=== PATIENT | female | born 1940 | race Caucasian/White ===

== ENCOUNTER 2017-06-17 06:09 | Emergency (ER) | payer OTHER ==
[~2017-06-17] VITALS: Ht 154.9 cm; Wt 79.4 kg
[~2017-06-17 06:09] MED LIST: ALFALFA650 MG PO; ANASPAZ0.125 MG; APPLE CIDER VI300 MG PO; ASPIRIN325 PO; BREWER S YEAST PO; BYSTOLIC 5 MG5 MG PO; CARDIZEM CD120 MG PO; CELEBREX50 MG PO; CLONAZEPAM 0.50.5 M1 PO; CLONIDINE0.1 PO; CLORPRES 0.1-11 EACH PO; COMPLEX; CRANBERRY400 MG PO; CRESTOR10 MG PO; FISHOIL PO; FLAXSEED OIL1000 M2 PO; FLAXSEED OIL1000 MG PO; FLEXERIL PO; HYDROCODON-ACE1 EAC5 PO; HYDROCODON-ACE1 EAC7 PO; HYDROCODON-ACE1 EACH PO; IBUPROFEN 200200 M1 PO; KAPVAY0.1 MG; LECITHIN1200 M1 PO; LEVOTHYROXINE PO; LISINOPRIL10 MG; LISINOPRIL10 MG PO; LISINOPRIL20 MG PO; MAGOX 400400 MG PO; METAXALL800 MG PO; MILK THISTLE500 MG PO; MOBIC7.5 M1 PO; MULTIVITAMINS PO; NEURONTIN 300300 M1 PO; NIACIN 500 MG500 M1 PO; OMEPRAZOLE40 MG PO; PREMARIN0.625 MG PO; PRILOSEC40 MG PO; PRINIVIL5 MG; PROBIOTIC1 EAC1 PO; SENNA; STOOL SOFTENER50 MG PO; TIZANIDINE HCL4 M1 PO; TOPICAL CREAM; TRAZODONE HCL100 MG PO; TUMS PO; UNICOMPLEX M TA1 TA1 PO; VITAMIN B-625 MG PO; VITAMIN D31000 UNI2 PO; VOLTAREN50 MG; [UNRECOGNIZED DRUG - OTHER]; [UNRECOGNIZED DRUG - OTHER]; [UNRECOGNIZED DRUG - OTHER] MC; vitamin b12 PO
[2017-06-17 06:57] LABS: ABSOLUTE EOSINOPHILS 0.2 thou/uL (0.0-0.7); ABSOLUTE LYMPHOCYTES 2.5 thou/uL (0.8-5.3); ABSOLUTE MONOCYTES 0.6 thou/uL (0.0-1.2); ABSOLUTE NEUTROPHILS 2.6 thou/uL (1.6-8.1); BASOPHILS 0.6 %; EOSINOPHILS 3.6 %; HEMATOCRIT 31.9 % (37.0-47.0); HEMOGLOBIN 11.2 gm/dL (12.0-15.0); LYMPHOCYTES 42.6 %; MCH 32.4 pg (26.0-34.0); MCHC 35.2 g/dL (28.0-37.0); MONOCYTES 9.8 %; MPV 6.7 fl. (7.2-11.1); NUCLEATED RBCS 0 /100WBC; PLATELET COUNT* 193 thou/uL (150-400); POLYS 43.4 %; RBC 3.46 mil/uL (4.20-5.00); WBC 5.9 thou/uL (4.0-11.0)
[2017-06-17 07:06] LABS: ANION GAP 3 mmol/L (7-16); BUN 16 mg/dL (7-18); CALCIUM 8.5 mg/dL (8.5-10.1); CHLORIDE 107 mmol/L (98-107); CO2 31 mmol/L (21-32); CREATININE 1.1 mg/dL (0.6-1.3); GLUCOSE 108 mg/dL (70-99); POTASSIUM 3.7 mmol/L (3.5-5.1); SODIUM 141 mmol/L (136-145)
[2017-06-17 07:13] LABS: ALBUMIN 3.2 g/dL (3.4-5.0); ALKALINE PHOSPHATASE 52 U/L (46-116); SGOT 17 U/L (15-37); SGPT 21 U/L (30-65); TOTAL BILIRUBIN 0.3 mg/dL (<0.1-1.0); TROPONIN-I LEVEL <0.06 ng/mL (<0.06)
[2017-06-17 08:00] LABS: URINE BILIRUBIN NEGATIVE (Negative); URINE BLOOD NEGATIVE (Negative); URINE CLARITY CLEAR; URINE COLOR YELLOW; URINE GLUCOSE-RANDOM NEGATIVE (Negative); URINE KETONES NEGATIVE (Negative); URINE LEUKOCYTES-REFLEX NEGATIVE (Negative); URINE NITRITE-REFLEX NEGATIVE (Negative); URINE PROTEIN NEGATIVE (Negative); URINE SPECIFIC GRAVITY <= 1.005 (1.005-1.030); URINE UROBILINOGEN 0.2 E.U./dl (0.2-1.0)
[2017-06-17] MEDS ORDERED: ZOFRAN ODT4 MG PO (10:18)
[2017-06-17] MEDS ORDERED: CARAFATE 1 GM TA1 GM PO (10:18)
[2017-06-17 10:41] VITALS: BP 131/56
--- NOTE | 2017-06-17 16:47 | EKG ---
[place] [address] ELECTROCARDIOGRAM REPORT Name: CAROLEIRASEMA Rosa Maria Room: [facility]#: [id number] Admission: 06/17/17 Attend Phys: Discharge: 06/17/17 Date of : 36 Report #: [id number] THIS REPORT FOR: //name// [facility] ED Test Date: 2017-06-17 Test Time: 06:39:38 Pat Name: IRASEMA LAM Department: Room: Gender: F Brisket Puller: YAKELIN : 1940 Requested By: Sonia Tabor Order Number: [id number] MD: Sampson Dumont Measurements Intervals [place] Rate: 60 P: 54 [place]: 167 QRS: -25 QRSD: 113 T: 55 QT: 515 QTc: 515 Interpretive Statements Sinus rhythm Borderline intraventricular conduction delay Prolonged QT interval nonspecific st changes Compared to ECG 06/17/2016 10:42:12 Prolonged QT interval now present Atrial premature complex(es) no longer present Left ventricular hypertrophy no longer present Electronically Signed On 06-17-2017 16:47:27 SEED BUYER by Sampson Dumont [email or web address] <ELECTRONICALLY SIGNED> By: Sampson Dumont MD, [facility] 06/17/17 1647 0639 0639 Sampson Dumont MD, [facility] /EPI
[2017-08-11] MEDS ORDERED: SYNTHROID50 MCG PO (13:56)
[2017-08-11] MEDS ORDERED: PREMARIN30 GM TOP (13:58)
[2017-08-11] MEDS ORDERED: HYDROCODONE-AP1 EAC6 PO (13:59)
[2017-08-11] MEDS ORDERED: LISINOPRIL10 MG PO (14:00)
[2017-08-11] MEDS ORDERED: ZANAFLEX4 MG PO (14:01)
[2017-08-11] MEDS ORDERED: [UNRECOGNIZED DRUG - OTHER] (14:02)
[2017-08-11] MEDS ORDERED: CHOLESTEROL OFF (14:02)
[2017-08-11] MEDS ORDERED: [UNRECOGNIZED DRUG - OTHER] (14:04)
[2017-09-25] MEDS ORDERED: HYDROCODONE-AP1 EAC6 PO (11:48)
[2017-09-25] MEDS ORDERED: MEDROLDOSEPACK PO (11:48)
== END 2017-06-17 10:44 | disposition home or self-care (01) ==
LOC: M.ERS 06:09
PROVIDERS: Personal Emergency Response Attendant
DX: R11.0 Nausea (principal); I10 Essential (primary) hypertension; Z90.710 Acquired absence of both cervix and uterus; Z90.49 Acquired absence of other specified parts of digestive tract; Z91.041 Radiographic dye allergy status; Z88.8 Allergy status to other drugs, medicaments and biological substances; Z88.0 Allergy status to penicillin

== ENCOUNTER → 2017-08-13 | Outpatient (CLI) | payer OTHER ==
[~2017-08-13] MED LIST changes: +CARAFATE 1 GM TA1 GM PO; +CHOLESTEROL OFF; +HYDROCODONE-AP1 EAC6 PO; +MEDROLDOSEPACK PO; +PREMARIN30 GM TOP; +SYNTHROID50 MCG PO; +ZANAFLEX4 MG PO; +ZOFRAN ODT4 MG PO; +[UNRECOGNIZED DRUG - OTHER]; +[UNRECOGNIZED DRUG - OTHER]
--- NOTE | 2017-08-13 10:03 | EKG ---
[place] [address] ELECTROCARDIOGRAM REPORT Name: IRASEMA LAM Room: [facility]#: [id number] Admission: 08/13/17 Attend Phys: Sampson Virgen MD Discharge: Date of : 38 Report #: [id number] THIS REPORT FOR: //name// [facility] Test Date: 2017-08-13 Test Time: 07:37:08 Pat Name: IRASEMA LAM Department: Room: Gender: F Probe Operator: 14 : 1940 Requested By: Rambo Guy Order Number: [id number] MD: Sampson Dumont Measurements Intervals [place] Rate: 70 P: 50 PA: 162 QRS: -40 QRSD: 110 T: 60 QT: 462 QTc: 499 Interpretive Statements Sinus rhythm Left axis deviation nonspecific st changes Borderline prolonged QT interval Compared to ECG 06/17/2017 06:39:38 no change Electronically Signed On 08-13-2017 10:03:29 CDT by Sampson Dumont [email or web address] <ELECTRONICALLY SIGNED> By: Sampson Dumont MD, [facility] 08/13/17 1003 Sampson Dumont MD, [facility] /EPI
== END ==
LOC: M.MRI 06:58
DX: M51.36 Other intervertebral disc degeneration, lumbar region (principal); M41.86 Other forms of scoliosis, lumbar region; M48.061 Spinal stenosis, lumbar region without neurogenic claudication; Z78.0 Asymptomatic menopausal state

== ENCOUNTER → 2017-08-28 | Outpatient (CLI) | payer OTHER | LOC: M.CT 11:11 | DX: K63.89 Other specified diseases of intestine (principal); M47.896 Other spondylosis, lumbar region; Z78.0 Asymptomatic menopausal state ==

== ENCOUNTER → 2017-09-25 | Outpatient (CLI) | payer OTHER ==
--- NOTE | 2017-10-03 09:09 | PAINCON ---
[address] [address] PAIN MANAGEMENT CONSULTATION Name: IRASEMA LAM Room: [facility].#: [id number] Admission: 09/25/17 Attend Phys: Alin Hill MD Discharge: Date of : 36 Report #: [id number] THIS REPORT FOR: //name// CC: Kary Hill DATE OF SERVICE: 09/25/2017 FOLLOWUP COMPLAINT: Pain is increased again. I am having pain that is radiating down into my calf. I had a long trip back from [place] and was unable to sit up in the car. FOLLOWUP HISTORY: The patient is a 76-year-old female who has been seen in the pain clinic because of lumbar radiculopathy. She has undergone epidural steroid injection in the pain and gleaned benefits greater than 50% from these. She has noted some worsening of her pain in the interim. Rates her pain as 5/10 at this juncture. Notes that she is feeling some weakness in her legs. Notes some decreased strength. She still goes to [employer] to work on at this problem. Notes that ____ can be helpful. She has a topical pain item which she rubs on posterior portion of her legs and finds that this can be somewhat helpful. States that she has seen her orthopaedic surgeon, but no significant pathology is obvious enough to warrant surgery at this juncture. She states that she must sleep in a recliner. She feels that her pain at sometimes rises to the level that she is unable to "think straight." It makes her "crazy." She does use hydrocodone 3 times a day when absolutely necessary. She tries to refrain from using opioid medications. ALLERGIES: IODINE, METALS TAPE, PENICILLIN, ADHESIVES. CURRENT MEDICATIONS: Sandoval 600 mg tablets, aspirin 325 mg 1 tablet, vitamin D3 1000 units, apple cider vinegar 300 mg tablet, clonazepam 0.5 mg, cranberry 400 mg, fish oil 240 mg t.i.d., estrogen 0.625, flaxseed oil 1000 mg, hydrocodone/acetaminophen 10/325 one q.8 hours p.r.n. pain., Lecithin 1200 mg capsule, lisinopril 20 mg b.i.d., magnesium oxide 400 mg at bedtime, milk thistle 500 mg, iron, Unicap, Unicomplex-M tablet 1, vitamin B6, Haq's Yeast 500 mg, and levothyroxine. The patient has stopped taking Prilosec 40 mg tablets, stopped malic acid powder 500 mg. PAIN CLINIC ASSESSMENT: 1. 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 2. Height 5 feet 1 inch, weight 175 pounds, BMI is 33. 3. VITAL SIGNS: Blood pressure 126/70, heart rate 73, respiratory rate 16, room air saturation 96%, temperature 98.1. 4. Pain intensity 5/10. 5. Fall risk. The patient has not fallen in the last 3 months, [place] [address] PAIN MANAGEMENT CONSULTATION Name: IRASEMA LAM Room: [facility]#: [id number] Admission: 09/25/17 Attend Phys: Alin Hill MD Discharge: Date of : 38 Report #: [id number] quite difficult to engage in a long car ride from [place] to [place]. 6. Blood thinner. The patient is not on a blood thinning medication. 7. Hypertension. The patient is being treated for hypertension. 8. Opioid therapy greater than 6 weeks. The patient has used opioid medications for chronic back pain. 9. Risk assessment tool. 10. Functional assessment tool. 11. Recreational drug use. The patient denies use of recreational drug use. 12. Tobacco: The patient denies use of tobacco. 13. Alcoholic beverages. The patient denies routine use of alcoholic beverages. LABORATORY DATA: Myelogram of the cervical spine dated 07/21/2017 indicate there is adequate contrast within the cervical spine for the CT. The contrast column diffused and spilled into the skull. The patient was not oblique to preserve the remaining contrast. There is reversal of the cervical lordosis centered at C5-C6. Ventral epidural defect is noted at C4-C5. Intrathecal instillation of 4 mL Isovue. FINDINGS: 1. At C3-C4, there is endplate spurring with uncinate process spurring. AP diameter is 14 mm. 2. At C4-C5 uncinate process spurring is greater on the left. There is facet hypertrophy with effacement of the ventral CSF column. AP diameter of 14 mm. 3. At C5-C6, there is endplate irregularity and uncinate process spurring are mild. There is effacement of the ventral CSF column. AP diameter 12 mm. 4. At C6-C7, there is disc osteophyte complex and uncinate process spurring. There is narrowing of the inner space. There is mild canal stenosis with midline AP diameter of the thecal sac 9-10 mm. Foraminal narrowing is mild on the right and mild to moderate on the left. 5. At C7-T1, there is facet hypertrophy which is greater on the right. There is mild right foraminal narrowing. MRI of the lumbar spine, mild scoliosis is noted: 1. There is a prominent facet degenerative change at the lower facets at L4-L5 and L5-S1. Mild facet degenerative changes noted throughout the lumbar spine. The conus is normal position. There is endplate marrow enhancement at L1-L2 with milder enhancement of the endplate at L3-L4. There is also some facet synovial enhancement on the right L1-L2. L4-L5 shows spurring and degenerative change. There is lateral recess and mild inferior foraminal encroachment bilaterally. Central canal is maintained. 2. L3-L4 shows no focal disc protrusion. There is mild disc bulging, facet spurring and degenerative changes noted with some ligamentum flavum hypertrophy. Central canal is maintained. 3. L2-L3. No focal disc protrusion. 4. L1-L2, the central canal is slower limits measuring 10 mm, [place] [address] PAIN MANAGEMENT CONSULTATION Name: ЕКАТЕРИНАEDUINIRASEMA Room: [facility]#: [id number] Admission: 09/25/17 Attend Phys: Alin Hill MD Discharge: Date of : 38 Report #: [id number] and degenerative changes are noted. PHYSICAL EXAMINATION: GENERAL: The patient is a well-developed, well-nourished white female. Appears her stated age. She is alert and oriented x 3. Affect is appropriate. Speech is fluent. HEENT: Normocephalic, atraumatic. Extraocular eye muscles intact. Hearing generally within normal limits. Sclerae nonicteric. NECK: Without JVD or adenopathy. Good range of motion. LUNGS: Generally clear to auscultation. HEART: Regular rate. ABDOMEN: Nontender. MUSCULOSKELETAL: Generally without significant scoliosis, kyphosis or lordosis. The patient has pain and discomfort, which radiates down in the L5-S1 distribution with pain radiating down into the L5-S1 dermatomal area. She has returned to the pain clinic and would like to proceed with an epidural steroid injection. She is experiencing sensory changes in the lower extremity with numbness, weakness, tenderness in the L5 dermatomal distribution and would like to proceed with an epidural steroid injection. RECOMMENDATION: We will petition her insurance company. She will return to the pain clinic after which she will then undergo an epidural steroid injection to help decrease the pain and discomfort which she is experiencing radiating down into the L5-S1 area, which has been benefited by epidural steroid injections and improved greater than 50% in the past. <ELECTRONICALLY SIGNED> By: Alin Hill MD 10/03/17 0909 1335 1916N. Nigel Hill MD /homero
== END ==
LOC: M.PC 02:28
DX: M47.27 Other spondylosis with radiculopathy, lumbosacral region (principal); Z91.041 Radiographic dye allergy status; Z88.0 Allergy status to penicillin

== ENCOUNTER → 2017-10-14 | Outpatient (CLI) | payer OTHER ==
--- NOTE | 2017-11-05 13:59 | PAINCON ---
[address] [address] PAIN MANAGEMENT CONSULTATION Name: IRASEMA LAM Room: [facility]#: [id number] Admission: 10/14/17 Attend Phys: Alin Hill MD Discharge: Date of : 38 Report #: [id number] THIS REPORT FOR: //name// CC: Kary Hill DATE OF SERVICE: 10/14/2017 FOLLOWUP COMPLAINT: "Here for an epidural steroid injection." FOLLOWUP HISTORY: The patient is a 76-year-old female who has been seen in the pain clinic because of pain and discomfort which she has been experiencing radiating down into her calf. She has returned to the pain clinic for an injection. As you recall, she has undergone epidural steroid injections in the past and gleans greater than 50% benefit from these. She noticed worsening of her pain a few weeks ago. Pain radiates down into her leg and has elevated to 5/10 pain. She notes that she was feeling some weakness in her legs. Does continue to do senior yoga. She finds that activity continues to strengthen her. Continues to use topical items and rubs, which seemed to be somewhat helpful. Her physician/orthopedic surgeon does not feel that there is significant pathology to warrant surgery at this juncture. Pain is still problematic and causes her to sleep in recliner. States that the pain sometimes is so painful and makes her feel crazy and has difficulty thinking straight. ALLERGIES: IODINE, METALS, TAPE, PENICILLIN, ADHESIVES. MEDICATIONS: aspirin 325 mg 1 tablet, vitamin D3 1000 units, apple cider vinegar 300 mg tablet, clonazepam 0.5 mg, cranberry 400 mg, fish oil 240 mg t.i.d., estrogen 0.625, flaxseed oil 1000 mg, hydrocodone 10/325 q. 8 hours p.r.n. pain, Lecithin 1200 mg capsules, lisinopril 20 mg b.i.d., magnesium oxide 400 mg at bedtime, milk thistle 500 mg, iron, Unicomplex-M tablet 1, vitamin B12, rangel's yeast 500 mg and levothyroxine. PAIN CLINIC ASSESSMENT: 1. Osteoarthritis and multilevel degenerative disk of the lumbar spine. 2. Height 5 feet 1 inch, weight 176 pounds, BMI is 33. 3. Vital signs: Blood pressure 113/63, heart rate 70, respiratory rate 16, room air saturation 95%, temperature 98.4. 4. Pain intensity 5/10. 5. Fall risk: The patient has not fallen in the last 3 months, but did fine quite difficult to engage in long car rides from [place] to [place]. 6. Blood thinner: The patient is not on a blood thinning agent. 7. Hypertension. The patient is being treated for hypertension. 8. Opioid therapy greater than 6 weeks, the patient has used opioid therapy. 9. [place] [address] PAIN MANAGEMENT CONSULTATION Name: IRASEMA LAM Room: [facility]#: [id number] Admission: 10/14/17 Attend Phys: Alin Hill MD Discharge: Date of : 38 Report #: [id number] 10. Functional assessment tool. 11. Recreational drug use. The patient denies use of recreational drugs use. 12. Tobacco: The patient denies use of tobacco. 13. Alcoholic beverages: The patient denies routine use of alcoholic beverages. PHYSICAL EXAMINATION: GENERAL: The patient is a well-developed, well-nourished white female. She appears her stated age. She is alert and oriented x 3. Her affect is appropriate. Speech is fluent. HEENT: Normocephalic, atraumatic. Extraocular muscles intact. Sclerae nonicteric. Hearing within normal limits. NECK: Without JVD or adenopathy. Good range of motion. LUNGS: Clear to auscultation without rales or crackles. HEART: Regular rate. S1, S2. ABDOMEN: Nontender, without organomegaly. MUSCULOSKELETAL: Generally without significant scoliosis, kyphosis or lordosis. The patient does have pain, which radiates down the L5-S1 distribution causing pain and discomfort in the L5-S1 dermatomal distribution. She has a positive straight leg raise. She is experiencing sensory changes in this area with numbness, weakness, tenderness and would like to proceed with an epidural steroid injection. RECOMMENDATION: We will proceed with an epidural steroid injection. Risks and benefits of the procedure were again reviewed. They were discussed. Possible complications of infection, increased muscle soreness, headache, bleeding, worsening of pain, no improvement in pain and paresis/paralysis were discussed. The patient elects to proceed. PROCEDURE NOTE: The patient was taken to procedure room. She was assisted in getting on the fluoroscopy table. Her back was sterilely prepped with Betadine. A pillow was used to bolster and increased the positioning in the lower lumbar area. A 0.25% bupivacaine was infiltrated. Fluoroscopy using anterior, posterior as well as lateral viewing was used to place the needle in the appropriate place. In the right lower paraspinous area with 0.25% bupivacaine at the L5-S1 interspace was infiltrated. A 17-gauge Tuohy with loss of resistance technique was used to gain access to the epidural space. There was no CSF bleeding noted. A total of 80 mg Depo-Medrol, 40 mg triamcinolone and 2 mL of 0.25% bupivacaine was injected. The patient tolerated the procedure well. There were no complications. We would like to thank you for letting us participate in her care. We hope she continues to improve. <ELECTRONICALLY SIGNED> By: Alin Hill MD 11/05/17 1359 [id number] 1028N. Nigel Hill MD /[facility]
== END | disposition home or self-care (01) ==
LOC: M.PC 02:17
DX: M51.16 Intervertebral disc disorders with radiculopathy, lumbar region (principal); G89.29 Other chronic pain; I10 Essential (primary) hypertension; E78.00 Pure hypercholesterolemia, unspecified; M19.90 Unspecified osteoarthritis, unspecified site; Z79.899 Other long term (current) drug therapy; Z91.040 Latex allergy status; Z88.0 Allergy status to penicillin; Z79.891 Long term (current) use of opiate analgesic; Z88.8 Allergy status to other drugs, medicaments and biological substances; Z85.828 Personal history of other malignant neoplasm of skin; Z98.890 Other specified postprocedural states; Z98.41 Cataract extraction status, right eye; Z98.42 Cataract extraction status, left eye; Z96.1 Presence of intraocular lens; Z90.710 Acquired absence of both cervix and uterus

== ENCOUNTER → 2017-12-01 | Outpatient (CLI) | payer OTHER | END | disposition home or self-care (01) | LOC: M.RAD 11-19 15:54 | DX: M25.551 Pain in right hip (principal); G89.29 Other chronic pain; Z88.0 Allergy status to penicillin; Z91.041 Radiographic dye allergy status; Z79.899 Other long term (current) drug therapy ==

== ENCOUNTER → 2018-01-05 | Outpatient (CLI) | payer OTHER | LOC: M.ULTRA 10:08 | DX: K59.00 Constipation, unspecified (principal); N89.8 Other specified noninflammatory disorders of vagina; I10 Essential (primary) hypertension; Z90.710 Acquired absence of both cervix and uterus; Z90.722 Acquired absence of ovaries, bilateral; Z88.0 Allergy status to penicillin ==

== ENCOUNTER → 2018-01-21 | Outpatient (CLI) | payer OTHER | LOC: M.MRI 07:39 | DX: M51.16 Intervertebral disc disorders with radiculopathy, lumbar region (principal); M48.062 Spinal stenosis, lumbar region with neurogenic claudication; M41.86 Other forms of scoliosis, lumbar region; R20.2 Paresthesia of skin; K76.9 Liver disease, unspecified; I10 Essential (primary) hypertension ==

== ENCOUNTER 2018-06-22 05:53 | Inpatient (IN) | payer OTHER ==
[2018-06-04 10:18] LABS: ABSOLUTE EOSINOPHILS 0.2 thou/uL (0.0-0.7); ABSOLUTE LYMPHOCYTES 2.9 thou/uL (0.8-5.3); ABSOLUTE MONOCYTES 0.4 thou/uL (0.0-1.2); ABSOLUTE NEUTROPHILS 1.5 thou/uL (1.6-8.1); BASOPHILS 0.8 %; EOSINOPHILS 3.4 %; HEMATOCRIT 36.9 % (37.0-47.0); HEMOGLOBIN 12.4 gm/dL (12.0-15.0); LYMPHOCYTES 57.2 %; MCH 31.1 pg (26.0-34.0); MCHC 33.6 g/dL (28.0-37.0); MCV 92.5 fL (80.0-100.0); MONOCYTES 8.2 %; MPV 7.2 fl. (7.2-11.1); NUCLEATED RBCS 0 /100WBC; PLATELET COUNT* 244 thou/uL (150-400); POLYS 30.4 %; RBC 3.98 mil/uL (4.20-5.00); RDW-CV 13.3 % (10.5-14.5)
[2018-06-04 10:48] LABS: ALBUMIN 3.5 g/dL (3.4-5.0); CALCIUM 9.1 mg/dL (8.5-10.1); CREATININE 1.4 mg/dL (0.6-1.3); TOTAL BILIRUBIN 0.3 mg/dL (<0.1-1.0); TOTAL PROTEIN 6.9 g/dL (6.4-8.2)
[2018-06-04 11:00] LABS: APTT 25.7 Seconds (25.0-31.3); PROTIME 9.9 Seconds (9.20-11.50)
[2018-06-04 11:18] LABS: ESR (SEDRATE) 27 mm/hr (0-30)
--- NOTE | 2018-06-04 16:43 | EKG ---
[place] [address] ELECTROCARDIOGRAM REPORT Name: IRASEMA LAM Room: [facility]#: [id number] Admission: Attend Phys: Sampson Mancia DO Discharge: Date of : 38 Report #: [id number] THIS REPORT FOR: //name// [facility] Test Date: 2018-06-04 Test Time: 10:17:24 Pat Name: IRASEMA LAM Department: Room: Gender: F Metallurgical Engineer: : 1940 Requested By: Sampson Mancia Order Number: [id number] Reading MD: Juan José Best Measurements Intervals [place] Rate: 68 P: 48 [place]: 143 QRS: -43 QRSD: 114 T: 53 QT: 461 QTc: 491 Interpretive Statements Sinus rhythm Borderline IVCD with LAD Abnormal R-wave progression, early transition Borderline prolonged QT interval Electronically Signed On 06-04-2018 16:42:50 ESE TEACHER by Juan José Best [email or web address] <ELECTRONICALLY SIGNED> By: Juan José Best MD, [facility] 06/04/18 1642 1017 1017 Juan José Best MD, [facility] /EPI
[2018-06-04 21:13] LABS: GLYCOHEMOGLOBIN (HGB A1C) 5.6 % (4.8-5.6)
[~2018-06-22] VITALS: Ht 154.9 cm; Wt 77.1 kg
--- NOTE | ~2018-06-22 | OP ---
[address] [address] OPERATIVE REPORT Name: CAROLEIRASEMA Rsoa Maria Room: [address]#: [id number] Admission: 06/22/18 Attend Phys: Pro Rose Discharge: 06/23/18 Date of : 38 Report #: [id number] THIS REPORT FOR: //name// CC: Sampson Gomez DATE OF SERVICE: 06/22/2018 PREOPERATIVE DIAGNOSES: Advanced degenerative joint disease with rotator cuff arthropathy, left shoulder. POSTOPERATIVE DIAGNOSES: Advanced degenerative joint disease with rotator cuff arthropathy, left shoulder. PROCEDURE: Left reverse total shoulder arthroplasty. SURGEON: Sampson Mancia DO. FIELD IRONWORKER: Sesar Romano DO. SECOND LAPEL PADDER BLINDSTITCH: Anastacio Wheeler DO. ESTIMATED BLOOD LOSS: 50 mL. ANESTHESIA: General with interscalene block. ANTIBIOTICS: Ancef 2 grams IV preoperatively. COMPLICATIONS: None. DRAINS: None. SPECIMEN REMOVED: None. ORTHOPEDIC IMPLANTS: A Tornier reverse shoulder arthroplasty system. 1. Size 3 humeral stem with 0 mm low offset tray and +6 mm polyethylene spacer. 2. 36 mm glenosphere. 3. 25 x 30 threaded baseplate. CONDITION: The patient is stable to PACU. INDICATIONS FOR PROCEDURE: The patient is a very pleasant 77-year-old female, seen in my clinic regarding left shoulder pain, she had for quite some time. She unfortunately failed conservative treatment including anti-inflammatory medications and activity modification. X-rays and MRI were consistent with a rotator cuff arthropathy. She had a previous reverse total shoulder [facility] [address] [place] [address] OPERATIVE REPORT Name: IRASEMA LAM Room: [address] [place] [facility]#: [id number] Admission: 06/22/18 Attend Phys: Pro Rose Discharge: 06/23/18 Date of : 38 Report #: [id number] arthroplasty done approximately 3-4 years ago on the right side. She is doing well with this. She wished to proceed with same procedure on the left side. I did discuss potential benefit of reverse total shoulder arthroplasty. I discussed procedure, risks, benefits, complications, indications in detail with her. Risks discussed include but not limited to infection, neurovascular injury, continued or worsened pain, no improvement in symptoms, fracture, hardware failure, need for further surgery, dislocation, DVT, PE and anesthesia complications. She did express understanding and wished to proceed with surgery. DESCRIPTION OF PROCEDURE: After consent was obtained, the patient was taken to the operative suite and placed in the supine position on the operating room table. She was given benefit of general anesthesia. She was then placed in beachchair position, all bony prominences well padded. The left shoulder was then sterilely prepped and draped in usual fashion. Preop timeout was obtained to confirm the correct patient, procedure and operative site. Surgery began with standard deltopectoral incision. Blunt dissection was taken down to the level of deltopectoral interval. The cephalic vein was easily visualized and retracted laterally throughout the case. The clavipectoral fascia was then incised in line with the skin incision. The conjoined tendon was retracted bluntly throughout the case medially. Deltoid adhesions were broken up bluntly. Ambrosio retractor was placed. She did have cuff arthropathy. The subscap was then released with electrocautery, taking care with the Hohmann retractor along the inferior humeral neck. Once the subscap was released, the shoulder was fairly easily dislocated with extension and external rotation. She did have a severely eburnated bone throughout the glenohumeral joint with osteophytes throughout. Rongeur was used to remove the osteophytes. At this time, the intramedullary neck cutting guide was utilized, and the proximal humeral neck cut was made of appropriate depth approximately 30 degrees of retroversion. We then began sequential broaching, was progressed up to a size 3. This was a good fit and fill over the proximal humerus. We then turned our attention to the glenoid. Releases were performed circumferentially for good glenoid exposure. Anterior and posterior glenoid retractors were placed. Once we had good exposure, guide pin was advanced to appropriate position and appropriate version and inclination were confirmed to be in good position. We then began sequential reaming and then was followed by central peg hole, which was drilled of 30 mm. The shoulder was then thoroughly irrigated. We then placed our 30 x 25 mm threaded baseplate. This did have good purchase. Two locking screws were placed at 26 mm and 32 mm. The centralized glenosphere was then placed and locked in place without significant difficulty. Attention was then turned to the proximal humerus, which did a trial reduction with a 0 tray and +6 polyethylene trial. This gave us good stability throughout range of motion and near full range of motion. The shoulder was then dislocated. A trial component was removed. The final size 3 stem was impacted into a clean canal and set to appropriate depth. Trial reduction was again performed and [address] [address] OPERATIVE REPORT Name: IRASEMA LAM Room: [address]#: [id number] Admission: 06/22/18 Attend Phys: Pro Rose Discharge: 06/23/18 Date of : 36 Report #: [id number] elected to proceed with +6 spacer. The final tray and spacer were packed into place. The shoulder was then reduced, taken through range of motion. There was no subluxation or dislocation noted throughout range of motion. The final components appear to be in a great position and no acute intraoperative complications were noted. Wound was then thoroughly irrigated with sterile saline. Ortho cocktail was injected. Deltopectoral fascia was loosely reapproximated with #1 Vicryl, subcutaneous tissues closed with 2-0 Vicryl in inverted interrupted fashion, followed by running Monocryl stitch on the skin. This covered with Dermabond, which was allowed to dry, silver dressing and pressure dressing. She was placed in a sling postoperatively. She did tolerate the procedure well without complications. All needle and sponge counts correct x 2 at the end of the procedure. She was taken to recovery room in stable condition. By: 0911 [id number] Mancia DO /nt
[~2018-06-22 05:53] MED LIST changes: +ASPIR 8181 MG PO; -CHOLESTEROL OFF; +CHOLESTEROL OFF PO; +CRANBERRY CONC500 MG PO; -CRANBERRY400 MG PO; +FISH OIL DR 1,1 EAC1 PO; -FISHOIL PO; +MAGNESIUM500 MG PO
[2018-06-22 07:00] VITALS: BP 138/68
[2018-06-22 11:22] VITALS: BP 108/49
[2018-06-22 15:56] VITALS: BP 129/59
[2018-06-22 20:00] VITALS: BP 122/57
[2018-06-23] VITALS: BP 143/56
[2018-06-23 04:00] VITALS: BP 123/59
[2018-06-23 04:40] LABS: HEMATOCRIT 29.6 % (37.0-47.0); HEMOGLOBIN 9.9 gm/dL (12.0-15.0)
[2018-06-23 08:10] VITALS: BP 109/50
[2018-06-23] MEDS ORDERED: ASPIR-TRIN325 MG PO (13:11)
[2018-06-23] MEDS ORDERED: OXYCODONE HCL 55 MG PO (13:39)
[2018-06-23 13:43] VITALS: BP 109/50
[2018-06-23 14:40] VITALS: BP 109/50
== END 2018-06-23 14:41 | disposition home or self-care (01) | DRG 483 ==
LOC: M.SUR 05:53 → M.ORTHSURG 09:19 → M.SUR 10:26 → M.ORTHSURG 06-23 14:41
PROVIDERS: Orthopaedic Surgery; ADMIT Internal Medicine
PROC: 0RRK00Z Replacement of Left Shoulder Joint with Reverse Ball and Socket Synthetic Substitute, Open Approach (ICD-10-PCS; principal; 2018-06-22)
DX: M19.012 Primary osteoarthritis, left shoulder (principal); D62 Acute posthemorrhagic anemia; M75.102 Unspecified rotator cuff tear or rupture of left shoulder, not specified as traumatic; I10 Essential (primary) hypertension; Z91.041 Radiographic dye allergy status; Z88.0 Allergy status to penicillin; Z91.048 Other nonmedicinal substance allergy status; Z98.41 Cataract extraction status, right eye; Z98.42 Cataract extraction status, left eye; Z79.82 Long term (current) use of aspirin; Z90.710 Acquired absence of both cervix and uterus; Z90.49 Acquired absence of other specified parts of digestive tract; Z98.1 Arthrodesis status

== ENCOUNTER → 2018-06-26 | Outpatient (CLI) | payer OTHER ==
[~2018-06-26] MED LIST changes: +ASPIR-TRIN325 MG PO; +OXYCODONE HCL 55 MG PO
== END ==
LOC: M.ULTRA 16:30
DX: M79.89 Other specified soft tissue disorders (principal); Z96.612 Presence of left artificial shoulder joint

== ENCOUNTER 2018-06-28 02:32 | Emergency (ER) | payer OTHER ==
[~2018-06-28] VITALS: Ht 154.9 cm; Wt 77.1 kg
--- NOTE | ~2018-06-28 | EKG ---
[place] [address] ELECTROCARDIOGRAM REPORT Name: IRASEMA LAM Room: [facility]#: [id number] Admission: 06/28/18 Attend Phys: Discharge: 06/28/18 Date of : 38 Report #: [id number] THIS REPORT FOR: //name// [facility] ED Test Date: 2018-06-28 Test Time: 03:04:36 Pat Name: IRASEMA LAM Department: Room: Gender: F Field Services Manager: PAM : 1940 Requested By: Jelly Hinton Order Number: [id number] MD: Measurements Intervals [place] Rate: 63 P: 27 [place]: 144 QRS: -33 QRSD: 112 T: 24 QT: 461 QTc: 472 Interpretive Statements Sinus rhythm Left ventricular hypertrophy Compared to ECG 06/04/2018 10:17:24 Left ventricular hypertrophy now present [email or web address] By: 030 0304 Epiphany Epiphany, /EPI
[2018-06-28 02:51] LABS: ABSOLUTE BASOPHILS 0.1 thou/uL (0.0-0.2); ABSOLUTE EOSINOPHILS 0.2 thou/uL (0.0-0.7); ABSOLUTE LYMPHOCYTES 2.3 thou/uL (0.8-5.3); ABSOLUTE MONOCYTES 0.7 thou/uL (0.0-1.2); ABSOLUTE NEUTROPHILS 2.8 thou/uL (1.6-8.1); BASOPHILS 0.9 %; EOSINOPHILS 2.6 %; HEMATOCRIT 29.8 % (37.0-47.0); HEMOGLOBIN 10.1 gm/dL (12.0-15.0); LYMPHOCYTES 37.8 %; MCH 31.7 pg (26.0-34.0); MCHC 33.9 g/dL (28.0-37.0); MCV 93.6 fL (80.0-100.0); NUCLEATED RBCS 0 /100WBC; PLATELET COUNT* 257 thou/uL (150-400); POLYS 46.7 %; RBC 3.19 mil/uL (4.20-5.00); RDW-CV 13.7 % (10.5-14.5); WBC 6.1 thou/uL (4.0-11.0)
[2018-06-28 03:13] LABS: ANION GAP 7 mmol/L (7-16); BUN 13 mg/dL (7-18); CALCIUM 8.6 mg/dL (8.5-10.1); CHLORIDE 101 mmol/L (98-107); CO2 28 mmol/L (21-32); CREATININE 1.2 mg/dL (0.6-1.3); GLUCOSE 101 mg/dL (70-99); POTASSIUM 3.8 mmol/L (3.5-5.1); SODIUM 136 mmol/L (136-145)
[2018-06-28 03:25] LABS: ALKALINE PHOSPHATASE 61 U/L (46-116); NT-PRO BRAIN NAT PEPTIDE 1134 pg/mL (<300); SGOT 24 U/L (15-37); SGPT 17 U/L (30-65); TOTAL BILIRUBIN 0.2 mg/dL (<0.1-1.0); TOTAL PROTEIN 6.6 g/dL (6.4-8.2); TROPONIN-I LEVEL <0.06 ng/mL (<0.06)
[2018-06-28 04:26] LABS: URINE BILIRUBIN NEGATIVE (Negative); URINE BLOOD NEGATIVE (Negative); URINE CLARITY CLEAR; URINE COLOR STRAW; URINE GLUCOSE-RANDOM NEGATIVE (Negative); URINE KETONES NEGATIVE (Negative); URINE LEUKOCYTES-REFLEX TRACE (Negative); URINE NITRITE-REFLEX NEGATIVE (Negative); URINE PROTEIN NEGATIVE (Negative); URINE SPECIFIC GRAVITY <= 1.005 (1.005-1.030); URINE UROBILINOGEN 0.2 E.U./dl (0.2-1.0)
[2018-06-28 05:09] LABS: CASTS None Seen /LPF (None Seen); SQUAMOUS >10 Many /LPF (0-3); URINE RBC None Seen /HPF (0-2); URINE WBC-REFLEX 0-5 Rare /HPF (0-5)
[2018-06-28 05:10] LABS: BACTERIA-REFLEX 1-9 Few /HPF (None Seen); CRYSTALS None Seen /LPF (None Seen)
[2018-06-28 06:13] VITALS: BP 171/78
== END 2018-06-28 06:16 | disposition home or self-care (01) ==
LOC: M.ERS 02:32
PROVIDERS: Emergency Medicine
DX: I10 Essential (primary) hypertension (principal); Z90.49 Acquired absence of other specified parts of digestive tract; Z90.710 Acquired absence of both cervix and uterus; Z88.0 Allergy status to penicillin; Z91.041 Radiographic dye allergy status; Z91.09 Other allergy status, other than to drugs and biological substances

== ENCOUNTER → 2018-08-14 | Outpatient (CLI) | payer OTHER | LOC: M.ULTRA 07:55 | DX: I10 Essential (primary) hypertension (principal); R11.0 Nausea; Z79.899 Other long term (current) drug therapy ==

== ENCOUNTER 2018-12-05 11:15 | Emergency (ER) | payer OTHER ==
[~2018-12-05] VITALS: Ht 154.9 cm; Wt 72.6 kg
[2018-12-05] MEDS ORDERED: MEDROLDOSEPACK PO (11:49)
[2018-12-05 12:14] VITALS: BP 131/62
== END 2018-12-05 12:15 | disposition home or self-care (01) ==
LOC: M.ERS 11:15
DX: L25.9 Unspecified contact dermatitis, unspecified cause (principal); I10 Essential (primary) hypertension; Z90.49 Acquired absence of other specified parts of digestive tract; Z90.710 Acquired absence of both cervix and uterus; Z88.0 Allergy status to penicillin; Z91.041 Radiographic dye allergy status

== ENCOUNTER → 2019-01-04 | Outpatient (CLI) | payer OTHER | LOC: M.MRI 08:16 | DX: M75.82 Other shoulder lesions, left shoulder (principal); Z96.612 Presence of left artificial shoulder joint ==

== ENCOUNTER → 2019-01-27 | Outpatient (CLI) | payer OTHER | LOC: M.MRI 10:42 | DX: S83.242A Other tear of medial meniscus, current injury, left knee, initial encounter (principal); M71.22 Synovial cyst of popliteal space [Baker], left knee; M25.362 Other instability, left knee; M25.462 Effusion, left knee; X58.XXXA Exposure to other specified factors, initial encounter; Y93.89 Activity, other specified; Y92.89 Other specified places as the place of occurrence of the external cause; Y99.8 Other external cause status ==

== ENCOUNTER → 2019-03-01 | Day surgery (SDC) | payer OTHER ==
[~2019-03-01] MED LIST changes: +KRILL OIL 3001 EACH PO; +NORCO 5-325 TA1 EAC1 PO; +PROTONIX40 M1 PO; +ZANTAC 150MG T150 MG PO
[2019-03-01 08:28] LABS: HEMATOCRIT 32.3 % (37.0-47.0); MCH 31.6 pg (26.0-34.0); MCV 93.1 fL (80.0-100.0); MPV 6.6 fl. (7.2-11.1); RBC 3.46 mil/uL (4.20-5.00); RDW-CV 13.5 % (10.5-14.5); WBC 5.5 thou/uL (4.0-11.0)
[2019-03-01 09:03] LABS: CALCIUM 8.8 mg/dL (8.5-10.1); CREATININE 1.6 mg/dL (0.6-1.3); POTASSIUM 4.5 mmol/L (3.5-5.1)
[2019-03-01 09:08] LABS: ALBUMIN 3.5 g/dL (3.4-5.0); TOTAL BILIRUBIN 0.2 mg/dL (<0.1-1.0); TOTAL PROTEIN 6.5 g/dL (6.4-8.2)
--- NOTE | 2019-03-01 16:24 | EKG ---
[place] [address] ELECTROCARDIOGRAM REPORT Name: CAROLEIRASEMA Crane Room: [facility]#: [id number] Admission: 03/01/19 Attend Phys: Sampson Mancia DO Discharge: Date of : 38 Report #: [id number] THIS REPORT FOR: //name// [facility] Test Date: 2019-03-01 Test Time: 08:20:25 Pat Name: IRASEMA LAM Department: Room: Gender: F Electrical And Instrumentation Manager: : 1940 Requested By: Sampson Manica Order Number: [id number] MD: Juan José Best Measurements Intervals [place] Rate: 50 P: 51 [place]: 173 QRS: -41 QRSD: 115 T: 4 QT: 486 QTc: 444 Interpretive Statements Sinus rhythm Left anterior fascicular block Borderline T abnormalities, inferior leads Compared to ECG 06/28/2018 03:04:36 Left anterior fascicular block now present T-wave abnormality now present Left ventricular hypertrophy no longer present Electronically Signed On 03-01-2019 16:24:43 CDT by Juan José Best [email or web address] <ELECTRONICALLY SIGNED> By: Juan José Best MD, [facility] 03/01/19 1624 9 9 Juan José Best MD, [facility] /EPI
--- NOTE | 2019-04-05 10:50 | OP ---
[address] [address] OPERATIVE REPORT Name: IRASEMA LAM Room: [facility]#: [id number] Admission: 03/01/19 Attend Phys: Sampson Mancia DO Discharge: Date of : 36 Report #: [id number] THIS REPORT FOR: //name// CC: Sampson Virgen DATE OF SERVICE: 03/01/2019 PREOPERATIVE DIAGNOSIS: Continued pain, status post left reverse total shoulder arthroplasty approximately 1 year prior with scar formation. POSTOPERATIVE DIAGNOSES: 1. Postoperative adhesions, left shoulder. 2. Biceps tendon tear with subluxation, dislocation. SURGEON: Sampson Mancia DO. FINISH MIXER: Hari Wu DO. ESTIMATED BLOOD LOSS: 20 mL. COMPLICATIONS: None. DRAINS: None. SPECIMEN REMOVED: None. CONDITION OF PATIENT: Stable to PACU. INDICATIONS: The patient is a pleasant 78-year-old female, whom I have seen in my clinic regarding left shoulder pain for quite some time. She unfortunately failed conservative treatment. She had a previous left reverse total shoulder arthroplasty approximately one year ago with myself. She did quite well initially. Unfortunately, she had a sudden onset of increasing pain as well as stiffness and catching in the shoulder. She unfortunately failed conservative treatment including steroid injections, physical therapy and activity modification. The pain was interfering with quality of life and activities of daily living. I also performed CT scan, which is essentially unremarkable. Based on her continued pain and debility, I discussed potential benefit of open lysis of adhesions with possible pectoralis repair based on intraoperative findings. I discussed procedure, risks, benefits, complications and indications in detail with her. Risks discussed include but not limited to no improvement in symptoms, infection, neurovascular injury, hardware failure, fracture, dislocation, need for further surgery, DVT, PE, and/or anesthesia complications. She did express understanding and [place] [address] OPERATIVE REPORT Name: CAROLEIRASEMA Rosa Maria Room: [facility]#: [id number] Admission: 03/01/19 Attend Phys: Sampson Mancia DO Discharge: Date of : 38 Report #: [id number] DESCRIPTION OF PROCEDURE: After consent was obtained, the patient was taken to the operative suite and placed in supine position on operating room table. She was given benefit of general anesthesia. She was placed in beachchair position. All bony prominences were well padded. Left upper extremity was sterilely prepped and draped in usual fashion. Preop timeout was obtained to confirm the correct patient, procedure and operative site. Surgery began with an incision utilizing a previous scar. Electrocautery dissection was taken down to the level of the deltopectoral interval. This was encountered. Cephalic vein was protected throughout the procedure, retracted medially throughout the procedure. The interval was dissected deeper, exposing the anterior glenohumeral joint. She did have an abundant amount of scar formation in this area. Thee adhesions were released with electrocautery. Upon closer inspection, she had a tear of her biceps tendon, which was scarred into the bicipital groove and was subluxating with range of motion. We then elected to proceed with biceps tenotomy where the biceps had scarred in as this was quite taut. She also had some scarring over the anterior shoulder capsule, which was released also with electrocautery. The arm was taken through range of motion. There was no subluxation or dislocation noted. The implant was inspected and was found to be in good position with no loosening or any signs of infection. At this time, the shoulder was then thoroughly irrigated with sterile saline. The deltopectoral interval was loosely reapproximated with #1 Vicryl in a [id number]-xr-dbwiy fashion. Subcutaneous tissue was closed with a 2-0 Vicryl in an interrupted fashion followed by running Monocryl stitch on the skin. This was covered with Dermabond, which was allowed to dry, and sterile dressing. She tolerated the procedure well without complications. She was taken to the recovery room in stable condition. All needle and sponge counts correct x 2 at the end of the procedure. <ELECTRONICALLY SIGNED> By: Sampson Mancia DO 04/05/19 1050 0913 1055David Anshul Mancia DO /nt
== END | disposition home or self-care (01) ==
LOC: M.SUR 07:35
PROVIDERS: Orthopaedic Surgery
DX: M25.512 Pain in left shoulder (principal); S46.212A Strain of muscle, fascia and tendon of other parts of biceps, left arm, initial encounter; S43.082A Other subluxation of left shoulder joint, initial encounter; S43.085A Other dislocation of left shoulder joint, initial encounter; Z96.612 Presence of left artificial shoulder joint; I10 Essential (primary) hypertension; Z88.0 Allergy status to penicillin; Z91.041 Radiographic dye allergy status; Z79.82 Long term (current) use of aspirin; Z79.899 Other long term (current) drug therapy; Z90.710 Acquired absence of both cervix and uterus; Z90.49 Acquired absence of other specified parts of digestive tract; Z98.890 Other specified postprocedural states; Z98.41 Cataract extraction status, right eye; Z98.42 Cataract extraction status, left eye; Z79.891 Long term (current) use of opiate analgesic; X58.XXXA Exposure to other specified factors, initial encounter; Y93.89 Activity, other specified; Y92.89 Other specified places as the place of occurrence of the external cause; Y99.8 Other external cause status

== ENCOUNTER → 2019-07-13 | Outpatient (CLI) | payer OTHER | LOC: M.RAD 15:13 | DX: I10 Essential (primary) hypertension (principal) ==

== ENCOUNTER → 2019-12-08 | Outpatient (CLI) | payer OTHER ==
--- NOTE | 2019-12-08 10:57 | 2DMMODE ---
[place] [address] 2 D/M-MODE ECHOCARDIOGRAM Name: IRASEMA LAM Room: [facility]#: [id number] Admission: 12/08/19 Attend Phys: CIRILO Andrews Discharge: Date of : 36 Date of Service: 12/08/19 1057 Report #: [id number] THIS REPORT FOR: cc: Lise Gruber Tammy RNP Blick, David R. MD [facility] ~ APPROVED REPORT Study performed: 12/08/2019 08:25:41 EXAM: Comprehensive 2D, Doppler, and color-flow Echocardiogram Patient Location: Out-Patient BSA: 1.78 HR: 80 bpm BP: 135/74 mmHg Other Information Study Quality: Good Indications Chest Pain Hypertension/HDD 2D Dimensions IVSd: 10.63 (7-11mm) LVOT Diam: 20.37 (18-24mm) LVDd: 42.41 mm PWd: 10.06 (7-11mm) Ascending Ao: 34.67 (22-36mm) LVDs: 29.28 (25-40mm) Aortic Root: 29.22 mm Volumes Left Atrial Volume (Systole) LA ESV Index: 14.70 mL/m2 Aortic Valve AoV Peak Stu.: 0.99 m/s AO Peak Gr.: 3.92 mmHg LVOT Max P.07 mmHg AO Mean Gr.: 1.97 mmHg LVOT Mean P.73 mmHg LVOT Max V: 1.01 m/s AO V2 VTI: 20.20 cm LVOT Mean V: 0.59 m/s ANGELO (VTI): 3.47 cm2 LVOT V1 VTI: 21.49 cm AI [place]: 2.00 m/s2 AI PHT: 627.12 [place] [address] 2 D/M-MODE ECHOCARDIOGRAM Name: IRASEMA LAM Room: [facility]#: [id number] Admission: 12/08/19 Attend Phys: CIRILO Andrews Discharge: Date of : 36 Date of Service: 12/08/19 1057 Report #: [id number] Mitral Valve E/A Ratio: 0.69 MV Decel. Time: 250.70 ms MV E Max Stu.: 0.49 m/s MV PHT: 72.70 ms MVA (PHT): 3.03 cm2 TDI E/Lateral E': 7.00 E/Medial E': 8.17 Medial E' Stu.: 0.06 m/s Lateral E' Stu.: 0.07 m/s Pulmonary Valve PV Peak Stu.: 0.78 m/s PV Peak Gr.: 2.45 mmHg Tricuspid Valve RAP Estimate: 5.00 mmHg TR Peak Gr.: 18.58 mmHg RVSP: 23.58 mmHg PA Pressure: 23.58 mmHg Left Ventricle The left ventricle is normal size. There is normal LV segmental wall motion. There is normal left ventricular wall thickness. Left ventricular systolic function is normal. The left ventricular ejection fraction is within the normal range. LVEF is 55-60%. Grade I - abnormal relaxation pattern. Right Ventricle The right ventricle is normal size. The right ventricular systolic function is normal. Atria The left atrium size is normal. The right atrium size is normal. Aortic Valve Mild aortic valve sclerosis. Mild aortic regurgitation. There is no aortic valvular stenosis. Mitral Valve Mild mitral annular calcification. The mitral valve is normal in structure. Trace mitral regurgitation. No evidence of mitral valve stenosis[place] [address] 2 D/M-MODE ECHOCARDIOGRAM Name: IRASEMA LAM Room: [facility]#: [id number] Admission: 12/08/19 Attend Phys: CIRILO Andrews Discharge: Date of : 36 Date of Service: 12/08/19 1057 Report #: [id number] The tricuspid valve is normal in structure. Trace tricuspid regurgitation. Pulmonic Valve The pulmonary valve is normal in structure. There is no pulmonic valvular regurgitation. Great Vessels The aortic root is normal in size. IVC is normal in size and collapses >50% with inspiration. Pericardium There is no pericardial effusion. <Conclusion> LVEF is 55-60%. Mild aortic valve sclerosis. Mild aortic regurgitation. <ELECTRONICALLY SIGNED> By: Sampson Dumont MD, [facility] 12/08/19 1057 1057 1057 Sampson Dumont MD, FACC /INF
--- NOTE | 2019-12-08 17:10 | CARDNUC ---
[place] [address] CARDIAC NUCLEAR IMAGING REPORT Name: IRASEMA LAM Room: [facility]#: [id number] Admission: 12/08/19 Attend Phys: CIRILO Andrews Discharge: Date of : 36 Date of Service: 12/08/19 1709 Report #: [id number] THIS REPORT FOR: cc: Lise Gruber Tammy RNP Liston, Michael J. MD [facility] ~ APPROVED REPORT Imaging Protocol: Rest Tc-99m/Stress Tc-99m 1 day Study performed: 12/08/2019 09:00:00 Indication: Chest pain, Right Arm Numbness. Patient Location: Out-Patient Stress Tech: Kellie Hayes Stress Nurse: Jania Meehan RN NM Tech:MEGAN Jeffery Ht: 5 ft 1 in Wt: 174 lbs BSA: 1.78 m2 BMI: 32.87 Medical History Medical History: Angina, Obesity, CKD, Hypothyroidism, Headache, Blurred vision, RBBB, Right Arm numbness, Hip pain, back pain, shoulder pain, neck pain. Medications: Amlodipine, Lisinopril, ASA 81 Mg, Clonidine. Allergies: Bystolic, Cardizem, Clindamycin, Crestor, PNC, Crestor, Povidone Iodine, Lipitor, Lyrica, Morphine, Neurontin, Niacin, Oxycontin, Tape-adhesives, Wasp venom, Zocor. Cardiac Risk Factors: Age, FHX of CAD, HTN, Hyperlipidemia, obesity. Previous Cardiac Procedures: None Pretest Chest Pain Characteristics: No chest pain Exercise History: Indeterminate Physical Disabilities: Hip, back, shoulder, neck pain. Meds Held (24 hrs): None Resting Data Rest SPECT myocardial perfusion imaging was performed in supine position 30 minutes following the intravenous injection of 11.5 mCi of Tc-99m Sestamibi. Time of rest injection: 914 Date: 12/08/2019 The images were gated to evaluate regional wall motion and calculate left ventricular ejection fraction. Administration Route: [place] [address] CARDIAC NUCLEAR IMAGING REPORT Name: ЕКАТЕРИНАIRASEMA DENNY [id number] Admission: 12/08/19 Attend Phys: CIRILO Andrews Discharge: Date of : 36 Date of Service: 12/08/19 1709 Report #: [id number] Administration Site: Right Pharmacologic Stress Pharmacologic stress test was performed by injecting Regadenoson 0.4 mg IV push over 10-15 seconds immediately followed by the intravenous injection of 35.7 mCi of Tc-99m Sestamibi. Time of stress injection: 1039 Date: 12/08/2019 Administration Route: IV Administration Site: Right AC Gated Stress SPECT was performed 40 minutes after stress injection. The images were gated to evaluate regional wall motion and calculate left ventricular ejection fraction. Prone imaging was performed. Stress Test Details Stress Test: Pharmacologic stress testing performed using 0.4 mg of regadenoson per 5 mL given IV over 10 seconds. Reason for pharmacologic stress test: Hip, back, shoulder, neck pain.. HR Max Heart Rate (APMHR): 139 bpm Resting HR: 84 bpm Target HR (85% APMHR): 118 bpm Max HR Achieved: 121 bpm % of APMHR: 87 Recovery HR: 97 bpm BP Resting BP: 150/73 mmHg Max BP: 182/82 mmHg Recovery BP: 140/57 mmHg ECG Resting ECG: Sinus Rhythm Stress ECG: Sinus Tachycardia ST Change: None Arrhythmia: APC's Recovery ECG: Sinus Rhythm Recovery ST Change: None Recovery Arrhythmia: APC's Clinical Reason for Termination: Completed protocol Stress Symptoms: 5/10 chest pressure, lightheadedness, head fullness. Exercise duration: 00 min 00 sec Exercise capacity: 1.00 [place] [address] CARDIAC NUCLEAR IMAGING REPORT Name: IRASEMA LAM Room: [facility]#: [id number] Admission: 12/08/19 Attend Phys: CIRILO Andrews Discharge: Date of : 36 Date of Service: 12/08/19 1709 Report #: [id number] The patient tolerated Lexiscan infusion without significant cardiac symptoms. Nurse Comments An 79 year old female presented for a sitting Lexiscan r/t chest pain with right arm numbness. Test well tolerated. Recovery unremarkable with PO caffeine. Patient was escorted by staff to Nuclear Medicine for imaging. Patient was stable and stated she felt good at that time. Stress ECG Conclusion The baseline twelve-lead EKG shows sinus rhythm without significant ST segment abnormality. There were occasional premature atrial contractions noted. EKGs obtained during and post Lexiscan infusion show sinus rhythm with no significant ST segment changes. There were frequent premature atrial contractions noted. Study Quality Study: Good Artifact: No artifact Study Data At rest, the left ventricular ejection fraction was 77%.. Post stress, the left ventricular ejection was 77%.. TID = 0.90. Perfusion Perfusion images at rest and post Lexiscan stress show uniform uptake of the radioisotope throughout the myocardium. There were no defects to suggest ischemia or infarct. Wall Motion Normal left ventricular wall motion. Nuclear Conclusion ECG Findings: negative for ischemia Clinical Findings: negative for ischemia Nuclear Findings: negative for ischemia Exercise Capacity: not assessed Left Ventricular Function: normal Risk Study: low Perfusion study showed no defect to suggest ischemia or infarct. Left ventricular systolic function is normal on gated studies. This is a low risk study. <Conclusion> [place] [address] CARDIAC NUCLEAR IMAGING REPORT Name: IRASEMA LAM Room: [facility] VALERIE Lino#: [id number] Admission: 12/08/19 Attend Phys: CIRILO Andrews Discharge: Date of : 36 Date of Service: 12/08/19 1709 Report #: [id number] The baseline twelve-lead EKG shows sinus rhythm without significant ST segment abnormality. There were occasional premature atrial contractions noted. EKGs obtained during and post Lexiscan infusion show sinus rhythm with no significant ST segment changes. There were frequent premature atrial contractions noted. <ELECTRONICALLY SIGNED> By: Mathew Holt MD, FACC 12/08/191708 08 08 Mathew Holt MD, FACC /INF
== END ==
LOC: M.CRD 11-25 12:09
PROVIDERS: ATTEND Registered Nurse Diabetes Educator
DX: I08.0 Rheumatic disorders of both mitral and aortic valves (principal); I10 Essential (primary) hypertension; E66.9 Obesity, unspecified; E78.2 Mixed hyperlipidemia; R07.9 Chest pain, unspecified

== ENCOUNTER → 2020-02-10 | Outpatient (CLI) | payer OTHER ==
[~2020-02-10] MED LIST changes: +MOVANTIK12.5 MG PO; +NEURONTIN300 MG PO; +TRAMADOL 50 MG50 MG PO
--- NOTE | 2020-02-22 13:31 | PAINCON ---
[address] [address] PAIN MANAGEMENT CONSULTATION Name: IRASEMA LAM [id number] Admission: 02/10/20 Attend Phys: Alin Hill MD Discharge: Date of : 38 Report #: [id number] THIS REPORT FOR: //name// cc: Lise Gruber Tammy RNP ~ THIS REPORT FOR: //name// CC: Alin Gruber DATE OF SERVICE: 02/10/2020 CHIEF COMPLAINT: Back pain. HISTORY: The patient is an 79-year-old female who has been seen in the pain clinic some years ago. She returns today indicating that her pain has become more problematic. It involves her low back and the patient states that she has had some problems with her back. She did undergo what sounds like radiofrequency ablations. They lasted for about 3-1/2 months, but still were not helpful. The patient has been seen by a neurosurgeon. At this juncture, he does not feel that Neurosurgery would be significantly helpful for her given her age and the problems that she has. She has had a fusion. Has some deep and burning pain down in anterior portion of her leg. Notes some pain in her neck as well. Has some pain and numbness radiating down to right arms. She has a history of spinal stenosis. She is sleeping poorly. She has had reverse shoulder surgeries on the left and the right. Has tried to do some yoga type exercises with no long-term benefits. Does note some shooting, sharp and burning pain. She has used gabapentin medication in a cream. Does have some difficulty with standing in the area of the kitchen sink. Doing activities such as laundry can be problematic. Has had acupuncture and chiropractic treatment. Has used ice. ALLERGIES: IODINE, METALS, TAPE, PENICILLIN, ADHESIVES. MEDICATIONS: Aspirin 81 mg chewable, vitamin D3, cholesterol lowering agent, clonazepam 1 mg at bedtime, cranberry extract, hydrocodone 10/325, Krill oil 300 mg, Synthroid 50 mcg, lisinopril 20 mg, multivitamins, fish oil 1000 mg, Protonix, Zantac 150 mg, Zanaflex 4 mg. PAIN CLINIC ASSESSMENT AND PQRS: 1. 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 2. Height 5 feet 1 inch, weight 176 pounds, BMI 33. 3. Vital Signs: Blood pressure 113/60, heart rate 70, respiratory rate 16, room air saturation 95%. 4. Pain intensity, 11/02. [place] [address] PAIN MANAGEMENT CONSULTATION Name: IRASEMA LAM Room: [facility]#: [id number] Admission: 02/10/20 Attend Phys: Alin Hill MD Discharge: Date of : 38 Report #: [id number] 5. Fall history. The patient has not fallen in the last 3 months. 6. Blood thinner. The patient is not on a blood thinning medication. 7. Hypertension. The patient is being treated for hypertension. 8. Opioids greater than 6 weeks. The patient receives medication from her primary. 9. Risk assessment tool. Reviewed. 10. Recreational drug use. The patient denies. 11. Tobacco. The patient denies. 12. Alcohol. The patient denies. PHYSICAL EXAMINATION: GENERAL: The patient is a well-developed, well-nourished, white female. Appears her stated age. She is alert and oriented x 3. Her affect is appropriate. Speech is fluent. HEENT: Normocephalic, atraumatic. Extraocular eye muscles intact. Sclerae nonicteric. Mucous membranes are moist. The patient is wearing a facial covering. NECK: Without adenopathy or JVD. LUNGS: Clear to auscultation. HEART: Regular. ABDOMEN: Nontender. MUSCULOSKELETAL: Upper extremity muscle strength judged to be 4+/5 for the major muscle groups in the upper extremity. The patient has some decreased range of motion in her shoulders, left and right because of reverse shoulder implants. Low back: The patient does have some pain and discomfort in the low back area. The patient also has some pain and discomfort in the right anterior thigh area at about L2-L3. IMPRESSION: 1. Spinal stenosis with chronic low back pain. 2. Hypertension. 3. Hypothyroidism. 4. Kidney disease. RECOMMENDATIONS: We discussed treatment options with the patient. At this juncture, does not appear that she is a surgical candidate. We will try a more conservative approach. The patient will start with gabapentin 300 mg 1 p.o. b.i.d. She will also try hydrocodone 5 mg 1 p.o. b.i.d. She will also try Movantik 12.5 mg for narcotic bowel. She will use tramadol 50 mg 1 p.o. b.i.d. to help with the pain as well. She will follow up in the near future. [address] [address] PAIN MANAGEMENT CONSULTATION Name: IRASEMA LAM Room: [facility] VALERIE Lino#: [id number] Admission: 02/10/20 Attend Phys: Alin Hill MD Discharge: Date of : 36 Report #: [id number] We would like to thank you for letting us participate in her care. We hope she continues to improve. <ELECTRONICALLY SIGNED> By: Alin Hill MD 02/22/20 1331 0941 2046N. Nigel Hill MD /[facility]
== END ==
LOC: M.PC 08:44
PROVIDERS: ATTEND Anesthesiology Pain Medicine
DX: G89.29 Other chronic pain (principal); M48.061 Spinal stenosis, lumbar region without neurogenic claudication; I10 Essential (primary) hypertension; E03.9 Hypothyroidism, unspecified; N28.9 Disorder of kidney and ureter, unspecified; Z68.33 Body mass index [BMI] 33.0-33.9, adult; Z88.8 Allergy status to other drugs, medicaments and biological substances; Z79.891 Long term (current) use of opiate analgesic; Z79.899 Other long term (current) drug therapy

== ENCOUNTER 2020-04-09 14:34 | Emergency (ER) | payer OTHER ==
[~2020-04-09] VITALS: Ht 154.9 cm; Wt 78.0 kg
[2020-04-09 15:31] LABS: ABSOLUTE BASOPHILS 0.1 thou/uL (0.0-0.2); ABSOLUTE EOSINOPHILS 0.1 thou/uL (0.0-0.7); ABSOLUTE LYMPHOCYTES 2.3 thou/uL (0.8-5.3); ABSOLUTE MONOCYTES 0.7 thou/uL (0.0-1.2); ABSOLUTE NEUTROPHILS 4.7 thou/uL (1.6-8.1); BASOPHILS 0.7 %; EOSINOPHILS 1.2 %; HEMATOCRIT 35.6 % (37.0-47.0); HEMOGLOBIN 11.8 gm/dL (12.0-15.0); LYMPHOCYTES 29.7 %; MCH 31.1 pg (26.0-34.0); MCHC 33.1 g/dL (28.0-37.0); MCV 93.8 fL (80.0-100.0); MONOCYTES 8.7 %; MPV 6.4 fl. (7.2-11.1); NUCLEATED RBCS 0 /100WBC; PLATELET COUNT* 258 thou/uL (150-400); POLYS 59.7 %; RDW-CV 13.9 % (10.5-14.5); WBC 7.8 thou/uL (4.0-11.0)
[2020-04-09 15:46] LABS: CALCIUM 8.2 mg/dL (8.5-10.1); CREATININE 1.6 mg/dL (0.6-1.3); POTASSIUM 4.4 mmol/L (3.5-5.1)
[2020-04-09 15:51] LABS: ALBUMIN 3.7 g/dL (3.4-5.0); MAGNESIUM 2.2 mg/dL (1.8-2.4); TOTAL BILIRUBIN 0.3 mg/dL (<0.1-1.0); TOTAL PROTEIN 6.7 g/dL (6.4-8.2)
[2020-04-09] MEDS ORDERED: FLEXERIL PO (18:30)
[2020-04-09 18:40] VITALS: BP 151/69
== END 2020-04-09 18:41 | disposition home or self-care (01) ==
LOC: M.ERS 14:34
PROVIDERS: Physician Assistant
DX: R25.2 Cramp and spasm (principal); I10 Essential (primary) hypertension; Z90.49 Acquired absence of other specified parts of digestive tract; Z90.710 Acquired absence of both cervix and uterus; Z91.041 Radiographic dye allergy status; Z88.0 Allergy status to penicillin; Z88.8 Allergy status to other drugs, medicaments and biological substances

== ENCOUNTER → 2020-04-27 | Outpatient (CLI) | payer OTHER | LOC: M.ULTRA 16:30 | PROVIDERS: ATTEND Registered Nurse Diabetes Educator | DX: M79.605 Pain in left leg (principal) ==

== ENCOUNTER 2021-02-17 00:54 | Emergency (ER) | payer OTHER ==
[~2021-02-17] VITALS: Ht 154.9 cm; Wt 77.1 kg
[2021-02-17 01:31] LABS: ABSOLUTE EOSINOPHILS 0.2 thou/uL (0.0-0.7); ABSOLUTE LYMPHOCYTES 2.4 thou/uL (0.8-5.3); ABSOLUTE MONOCYTES 0.9 thou/uL (0.0-1.2); BASOPHILS 0.5 %; EOSINOPHILS 2.8 %; HEMATOCRIT 32.4 % (37.0-47.0); LYMPHOCYTES 37.5 %; MCH 31.2 pg (26.0-34.0); MCHC 33.9 g/dL (28.0-37.0); MCV 92.2 fL (80.0-100.0); MONOCYTES 13.5 %; NUCLEATED RBCS 0 /100WBC; PLATELET COUNT* 236 thou/uL (150-400); POLYS 45.7 %; RBC 3.51 mil/uL (4.20-5.00); RDW-CV 13.4 % (10.5-14.5); WBC 6.5 thou/uL (4.0-11.0)
[2021-02-17 01:33] LABS: URINE BILIRUBIN NEGATIVE (Negative); URINE BLOOD NEGATIVE (Negative); URINE CLARITY SL CLOUDY; URINE COLOR YELLOW; URINE GLUCOSE-RANDOM NEGATIVE (Negative); URINE KETONES NEGATIVE (Negative); URINE LEUKOCYTES-REFLEX NEGATIVE (Negative); URINE NITRITE-REFLEX NEGATIVE (Negative); URINE PROTEIN NEGATIVE (Negative); URINE UROBILINOGEN 0.2 E.U./dl (0.2-1.0)
[2021-02-17 01:51] LABS: CALCIUM 9.1 mg/dL (8.5-10.1); CREATININE 1.6 mg/dL (0.6-1.3); POTASSIUM 4.2 mmol/L (3.5-5.1)
[2021-02-17 01:55] LABS: ALBUMIN 3.6 g/dL (3.4-5.0); MAGNESIUM 1.8 mg/dL (1.8-2.4); TOTAL BILIRUBIN 0.4 mg/dL (<0.1-1.0); TOTAL PROTEIN 6.9 g/dL (6.4-8.2)
[2021-02-17] MEDS ORDERED: PRILOSEC OTC20 MG PO (03:48)
[2021-02-17] MEDS ORDERED: CARAFATE 1 GM TA1 GM PO (03:48)
[2021-02-17 03:56] VITALS: BP 185/53
--- NOTE | 2021-02-17 11:52 | EKG ---
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: : 1940 Requested By: Jelly Hinton Order Number: [id number] MD: Sesar Sandhu Measurements Intervals [place] Rate: 77 P: 65 AL: 167 QRS: -60 QRSD: 114 T: 83 QT: 415 QTc: 470 Interpretive Statements Sinus arrhythmia Incomplete left bundle branch block Compared to ECG 03/01/2019 08:20:25 Left bundle-branch block now present Sinus rhythm no longer present Left anterior fascicular block no longer present T-wave abnormality no longer present Electronically Signed On 02-17-2021 11:52:19 CDT by Sesar Sandhu [email or web address] <ELECTRONICALLY SIGNED> By: Odalys Sandhu MD, FAC 02/17/21 1152 2 2 Odalys Sandhu MD, [facility] /EPI
== END 2021-02-17 03:57 | disposition home or self-care (01) ==
LOC: M.ERS 00:54
PROVIDERS: Emergency Medicine
DX: R10.812 Left upper quadrant abdominal tenderness (principal); I10 Essential (primary) hypertension; Z88.0 Allergy status to penicillin; Z88.5 Allergy status to narcotic agent; Z88.8 Allergy status to other drugs, medicaments and biological substances; Z90.89 Acquired absence of other organs; Z90.710 Acquired absence of both cervix and uterus

== ENCOUNTER 2021-02-21 15:53 | Emergency (ER) | payer OTHER ==
[~2021-02-21] VITALS: Ht 154.9 cm; Wt 77.1 kg
[~2021-02-21 15:53] MED LIST changes: +PRILOSEC OTC20 MG PO
[2021-02-21 16:23] LABS: ABSOLUTE LYMPHOCYTES 1.1 thou/uL (0.8-5.3); ABSOLUTE MONOCYTES 0.3 thou/uL (0.0-1.2); ABSOLUTE NEUTROPHILS 5.6 thou/uL (1.6-8.1); BASOPHILS 0.3 %; HEMOGLOBIN 11.9 gm/dL (12.0-15.0); LYMPHOCYTES 15.9 %; MCH 31.3 pg (26.0-34.0); MCHC 33.9 g/dL (28.0-37.0); MCV 92.2 fL (80.0-100.0); MONOCYTES 3.9 %; MPV 6.5 fl. (7.2-11.1); NUCLEATED RBCS 0 /100WBC; PLATELET COUNT* 316 thou/uL (150-400); POLYS 79.9 %; RDW-CV 13.4 % (10.5-14.5)
[2021-02-21 16:32] LABS: CALCIUM 9.3 mg/dL (8.5-10.1); CREATININE 1.5 mg/dL (0.6-1.3); POTASSIUM 4.3 mmol/L (3.5-5.1)
[2021-02-21 16:36] LABS: ALBUMIN 4.3 g/dL (3.4-5.0); TOTAL BILIRUBIN 0.2 mg/dL (<0.1-1.0); TOTAL PROTEIN 8.1 g/dL (6.4-8.2)
[2021-02-21 18:11] LABS: URINE BILIRUBIN NEGATIVE (Negative); URINE BLOOD NEGATIVE (Negative); URINE CLARITY CLEAR; URINE COLOR YELLOW; URINE GLUCOSE-RANDOM NEGATIVE (Negative); URINE KETONES NEGATIVE (Negative); URINE LEUKOCYTES-REFLEX NEGATIVE (Negative); URINE NITRITE-REFLEX NEGATIVE (Negative); URINE PROTEIN NEGATIVE (Negative); URINE SPECIFIC GRAVITY <= 1.005 (1.005-1.030); URINE UROBILINOGEN 0.2 E.U./dl (0.2-1.0)
[2021-02-21 19:45] VITALS: BP 136/67
--- NOTE | 2021-02-22 14:16 | EKG ---
[place] [address] ELECTROCARDIOGRAM REPORT Name: CAROLEIRASEMA Crane Room: [facility]#: [id number] Admission: 02/21/21 Attend Phys: Discharge: 02/21/21 Date of : 36 Date of Service: 02/21/21 1627 Report #: [id number] THIS REPORT FOR: //name// [facility] ED Test Date: 2021-02-21 Test Time: 16:27:23 Pat Name: IRASEMA LAM Department: Room: Gender: F Medical Research Assistant: : 1940 Requested By: Jatin Mcqueen Order Number: [id number] MD: Sampson Dumont Measurements Intervals [place] Rate: 72 P: 59 [place]: 157 QRS: -44 QRSD: 112 T: 73 QT: 388 QTc: 425 Interpretive Statements Sinus rhythm Atrial premature complex Borderline IVCD with LAD RSR' in V1 or V2, right VCD or RVH Compared to ECG 02/17/2021 01:03:41 Atrial premature complex(es) now present RSR' in V1 or V2 now present Sinus arrhythmia no longer present Electronically Signed On 02-22-2021 14:16:10 CDT by Sampson Dumont [email or web address] <ELECTRONICALLY SIGNED> By: Sampson Dumont MD, [facility] 02/22/21 1416 1627 1627 Sampson Dmuont MD, [facility] /EPI
== END 2021-02-21 19:45 | disposition home or self-care (01) ==
LOC: M.ERS 15:53
PROVIDERS: Physician Assistant
DX: R10.12 Left upper quadrant pain (principal); R06.02 Shortness of breath; R11.0 Nausea; I10 Essential (primary) hypertension; Z90.89 Acquired absence of other organs; Z90.49 Acquired absence of other specified parts of digestive tract; Z90.711 Acquired absence of uterus with remaining cervical stump; Z87.42 Personal history of other diseases of the female genital tract; Z79.82 Long term (current) use of aspirin; Z79.899 Other long term (current) drug therapy; Z91.041 Radiographic dye allergy status; Z91.048 Other nonmedicinal substance allergy status; Z88.0 Allergy status to penicillin; Z88.5 Allergy status to narcotic agent

== ENCOUNTER 2021-02-25 17:56 | Emergency (ER) | payer OTHER ==
[~2021-02-25] VITALS: Ht 154.9 cm; Wt 73.5 kg
[2021-02-25 19:01] LABS: ABSOLUTE BASOPHILS 0.1 thou/uL (0.0-0.2); ABSOLUTE EOSINOPHILS 0.2 thou/uL (0.0-0.7); ABSOLUTE LYMPHOCYTES 2.4 thou/uL (0.8-5.3); ABSOLUTE MONOCYTES 0.9 thou/uL (0.0-1.2); ABSOLUTE NEUTROPHILS 5.4 thou/uL (1.6-8.1); BASOPHILS 0.8 %; EOSINOPHILS 2.1 %; HEMATOCRIT 34.4 % (37.0-47.0); HEMOGLOBIN 11.7 gm/dL (12.0-15.0); LYMPHOCYTES 26.8 %; MCHC 33.9 g/dL (28.0-37.0); MCV 91.3 fL (80.0-100.0); MONOCYTES 9.9 %; MPV 6.5 fl. (7.2-11.1); NUCLEATED RBCS 0 /100WBC; PLATELET COUNT* 311 thou/uL (150-400); POLYS 60.4 %; RBC 3.77 mil/uL (4.20-5.00); RDW-CV 13.4 % (10.5-14.5)
[2021-02-25 19:10] LABS: CALCIUM 8.6 mg/dL (8.5-10.1); CREATININE 1.4 mg/dL (0.6-1.3); POTASSIUM 4.2 mmol/L (3.5-5.1)
[2021-02-25 19:15] LABS: TOTAL BILIRUBIN 0.3 mg/dL (<0.1-1.0); TOTAL PROTEIN 7.2 g/dL (6.4-8.2)
[2021-02-25 21:32] VITALS: BP 157/57
--- NOTE | 2021-02-26 10:31 | EKG ---
[place] [address] ELECTROCARDIOGRAM REPORT Name: CAROLEIRASEMA Rosa Maria Room: [facility]#: [id number] Admission: 02/25/21 Attend Phys: Discharge: 02/25/21 Date of : 36 Date of Service: 02/25/211831 Report #: [id number] THIS REPORT FOR: //name// [facility] ED Test Date: 2021-02-25 Test Time: 18:32:16 Pat Name: IRAESMA LAM Department: Room: Gender: F Benefits Manager: : 1940 Requested By: Jatin Mcqueen Order Number: [id number] MD: Juan José Best Measurements Intervals [place] Rate: 73 P: 57 ID: [id number] QRS: -47 QRSD: 109 T: 47 QT: 430 QTc: 474 Interpretive Statements Sinus rhythm Atrial premature complexes in couplets Left anterior fascicular block Minimal ST depression, lateral leads Compared to ECG 02/21/2021 16:27:23 Left anterior fascicular block persists ST (T wave) deviation now present Right ventricular hypertrophy no longer present Electronically Signed On 02-26-2021 10:31:30 CDT by Juan José Best [email or web address] <ELECTRONICALLY SIGNED> By: Juan José Best MD, FAC 02/26/21 1031 31 31 Juan José Best MD, [facility] /EPI
== END 2021-02-25 21:32 | disposition home or self-care (01) ==
LOC: M.ERS 17:56
PROVIDERS: Physician Assistant
DX: R10.814 Left lower quadrant abdominal tenderness (principal); R10.12 Left upper quadrant pain; R07.89 Other chest pain; I10 Essential (primary) hypertension; Z98.890 Other specified postprocedural states; Z90.89 Acquired absence of other organs; Z90.710 Acquired absence of both cervix and uterus; Z88.8 Allergy status to other drugs, medicaments and biological substances; Z88.0 Allergy status to penicillin; Z88.5 Allergy status to narcotic agent

== ENCOUNTER → 2021-05-30 | Outpatient (CLI) | payer OTHER | LOC: M.LAB 09:07 | PROVIDERS: ATTEND Internal Medicine Gastroenterology | DX: Z01.812 Encounter for preprocedural laboratory examination (principal); Z20.822 Contact with and (suspected) exposure to COVID-19 ==